=== PATIENT | male | born 1945 | race Caucasian/White ===

== ENCOUNTER → 2016-12-02 | Day surgery (SDC) | payer MEDICARE ==
[~2016-12-02] MED LIST: AMLODIPINE BESYL5 MG PO; ASPIRIN81 M2 PO; ASPIRINEC PO; ATENOLOL PO; BENAZEPRIL PO; CERTAGEN PO; COLCRYS0.6 M2 PO; CRANBERRY250 MG PO; FISH OIL 1,0001 CAP PO; HCTZ PO; HYDRALAZINE HCL50 MG PO; HYDROCODONE; KEFLEX PO; OMEGA-3 KRILL1 EACH PO; PRAVASTATIN SOD80 MG PO; PREVACID PO; PREVACID15 MG PO; XARELTO20 MG PO; ZYLOPRIM100 MG DOB
--- NOTE | ~2016-12-02 | OR ---
Unit #: [id number] #: [id number] Patient: KIMBERLY VALENCIA [id number] [address] [place], [place] [address] [id number] MR#: [id number] NAME: KIMBERLY VALENCIA. ROOM: Date of Procedure: 12/02/2016 Admission Date: 12/02/2016 Surgeon: Reyes Valladares M.D. : 1945 Attending Physician: Reyes Valladares M.D. Primary Care Physician: Augustin Brenner D.O. OPERATIVE REPORT PRIMARY CARE PHYSICIAN Augustin Brenner D.O. PREOPERATIVE DIAGNOSES The patient has come for surveillance colonoscopy. He has personal history of colon polyps. PROCEDURES PERFORMED 1. Colonoscopy and polypectomy. 2. Colonoscopy and biopsies. POSTOPERATIVE DIAGNOSES 1. The patient had multiple polyps. There were two polyps in the cecum, one in the descending colon, one in the ascending colon, one in the transverse colon, one in the sigmoid colon. The polyps ranged in size from 5 mm to a centimeter each. One polyp was diminutive in the descending colon and was removed using biopsy forceps. The remaining polyps were all sessile and were removed using snare polypectomy. 2. The patient also had mild sigmoid and descending colon diverticulosis. 3. Rest of the examination up to cecum and terminal ileum was normal. The quality of the prep was excellent. RECOMMENDATIONS 1. Follow up the results of polyp histology. 2. Consider repeat colonoscopy in 5 years. SEDATION USED MAC. DESCRIPTION OF PROCEDURE Following detailed explanation of the potential risks and complications of a colonoscopy, namely perforation, bleeding, and complications related to sedation, the patient was brought to GI lab and laid in the left lateral decubitus position. A digital rectal examination was performed, which was normal. Lubricated tip of the Olympus video colonoscope was inserted through the anus and advanced under direct vision. The scope was advanced past rectosigmoid into descending colon. Multiple small to medium-sized diverticula were noted in this area. In addition, a single sessile diminutive polyp was noted in the mid descending colon. The latter was removed using cold biopsy forceps. The scope tip was then navigated all the way up to cecum with visualization of the ileocecal valve and the appendiceal orifice. Preparation was excellent with good visualization Unit #: [id number] #: [id number] Patient: KIMBERLY VALENCIA and photodocumentation was obtained. Last several inches of the terminal ileum were also visualized after intubation of the ileocecal valve and appeared normal. Successive segments of the colonic mucosa were examined upon withdrawal. Multiple polyps were removed using withdrawal phase examination. There were two polyps in the cecum, one in the ascending colon, one in the transverse colon, and one polyp in the sigmoid colon. All were sessile and ranged in size from 5 mm to a centimeter each. All were removed using snare polypectomy. They were retrieved and sent for histology. Other than the left-sided diverticula, no additional abnormalities were noted. The scope was then withdrawn. The patient did not have any internal hemorrhoids at the anal verge. The scope was then withdrawn and the patient returned to the recovery area. He tolerated the procedure without any postprocedure complications. Dictated by... Tasneem Wiley/fred TD: 12/02/2016 13:15 JOB #: [id number] CC: Augustin Brenner D.O. OPERATIVE REPORT Page 1 of 1 X Reyes Valladares MD X PROCEDURE OPERATIVE NOTE
== END | disposition home or self-care (01) ==
LOC: COPS 08:15
DX: Z12.11 Encounter for screening for malignant neoplasm of colon (principal); D12.2 Benign neoplasm of ascending colon; D12.0 Benign neoplasm of cecum; D12.4 Benign neoplasm of descending colon; D12.3 Benign neoplasm of transverse colon; D12.5 Benign neoplasm of sigmoid colon; I25.10 Atherosclerotic heart disease of native coronary artery without angina pectoris; I10 Essential (primary) hypertension; I48.91 Unspecified atrial fibrillation
CPT/HCPCS: 82947; 88305; J1100